=== PATIENT | male | born 1930 | race Native Hawaiian/Other Pacific Islander ===

== ENCOUNTER 2016-12-04 20:31 | Inpatient (IN) | payer OTHER ==
[~2016-12-04] VITALS: Ht 190.5 cm; Wt 78.2 kg
--- NOTE | ~2016-12-04 | HC ---
[facility] [place] [address] CONSULTATION Name: JOANNA THAPA Room #: 215-P ADM IN M.R.#: [id number] Admission: 12/04/16 Attend Phys: Alexus Ramos MD Discharge: Date of : 30 Report #: [id number] THIS REPORT FOR: //name// CC: Alexus Ramos MD HISTORY OF PRESENT ILLNESS: This is an 86-year-old gentleman who generally seeks cardiovascular management at [facility] with Dr. Bill Reina. He has had recent difficult course with frequent urinary tract infections requiring hospitalization and most recently a group home facility placement. According to the on the day of admission, there was reported change in mentation, questionable right-sided facial droop and what was felt to be of slowed mentation and was transferred to our facility for rule out cerebrovascular accident. We are asked to see him in cardiovascular consultation secondary to an elevated troponin; however, negative for myocardial infarction. REVIEW OF SYSTEMS: The patient is unable to provide full 12-point review of systems. The does essentially answer for him. There have been no recent reports of chest pain, palpitations or syncopal events. He is chronically anticoagulated and there has not been any reported evidence of GI bleeding. Otherwise, unable to obtain a full 12-point review of systems due to the patient's mentation. PAST MEDICAL HISTORY: As obtained through chart review as well as discussion with the patient and the nurse, permanent atrial fibrillation, sick sinus syndrome with recent single chamber Medtronic permanent pacemaker placed approximately 10 weeks ago, Parkinson's disease, diabetes mellitus, chronic anemia, osteoarthritis, hypertension, prostate enlargement, frequent urinary tract infection. SOCIAL HISTORY: He is , had been residing at home. There is no alcohol or tobacco use. FAMILY HISTORY: Negative for premature coronary artery disease. Essentially noncontributory for this hospitalization. HOME MEDICATIONS: As listed on his admission records eye drops as directed, Sinemet as directed, chlorthalidone daily, Aricept daily, lisinopril 10 mg daily, metformin 500 mg twice daily, Flomax 0.4 mg daily, Mevacor daily, Lopressor 50 mg twice daily, Amaryl 2 mg daily, Proscar daily, Coumadin as directed, Lasix 40 mg daily, potassium 10 mEq daily. ALLERGIES: No known drug allergies. PHYSICAL EXAMINATION: GENERAL: Alert, appropriate, however, did not verbalize with me today. [address] [address] CONSULTATION Name: JOANNA THAPA Room #: 215-P [facility] IN M.R.#: [id number] Admission: 12/04/16 Attend Phys: Alexus Ramos MD Discharge: Date of : 30 Report #: [id number] SKIN: [place], warm, dry. NECK: Without jugular venous distention. LUNGS: Sounds are clear, without rhonchi or wheeze. CARDIAC: Irregularly regular rhythm. Short systolic murmur. ABDOMEN: Soft, nontender. Bowel sounds are active. EXTREMITIES: Warm. VITAL SIGNS: He is saturating 99% on 2 liters nasal cannula. He is afebrile. He has permanent atrial fibrillation with ventricular paced rhythm on the monitor. Hemodynamically stable with blood pressures 130s to 150s, diastolics in the 60s to 70s. He weighs 172 pounds. DIAGNOSTIC DATA: Carotid Doppler has been obtained, which was negative for significant plaquing. Echocardiogram shows an ejection fraction of 50% range. Moderate right ventricular enlargement, moderate mitral regurgitation and moderate pulmonary hypertension with PA pressures in the 40s. Head CT, which was negative for acute process. An MRI is currently pending. Neurology evaluation has been completed. IMPRESSION: 1. Neurological changes. 2. Parkinson's disease. 3. Permanent atrial fibrillation. 4. Sick sinus syndrome, permanent pacemaker in place. 5. Thrombocytopenia. 6. Diabetes. 7. Dementia. RECOMMENDATIONS AND PLAN: We will discontinue any further troponin readings. These have been elevated without evidence of myocardial ischemia nor significant elevations. Cardiovascular status appears stable at this time. This was discussed with the today. We will continue to monitor him on the telemetry floor and further recommendations plan to be forthcoming. LABORATORY DATA: Sodium 139, potassium 3.9, BUN 49, creatinine 1.8. Troponins 0.06, 0.09 and 0.11 sequentially which are negative for myocardial infarction. INR was therapeutic at 2.4. Hemoglobin 12.0, white count 4.0, platelets low at 90. Thank you for allowing us to participate in the care of this pleasant gentleman. By: [id number] Tereza Somers, ADIS, CIAIO LUMITE INJECTOR /nt
--- NOTE | ~2016-12-04 | EKG ---
[address] [address] ELECTROCARDIOGRAM REPORT Name: JOANNA THAPA Room #: 215-P ADM IN M.R.#: [id number] Admission: 12/04/16 Attend Phys: Alexus Ramos MD Discharge: Date of : 30 Report #: [id number] THIS REPORT FOR: //name// [facility] ED Test Date: 2016-12-04 Test Time: 20:54:05 Pat Name: JOANNA THAPA Department: Room: [facility] Gender: M Adolescent Counselor: MZOOK : 1930 Requested By: Antonio Dorantes Order Number: [id number] MD: Coleman Hale Measurements Intervals [place] Rate: 63 P: 0 OR: 140 QRS: -78 QRSD: 166 T: 95 QT: 483 QTc: 495 Interpretive Statements Ventricular-paced rhythm No further analysis attempted due to paced rhythm No previous ECG available for comparison Electronically Signed On 12-06-2016 9:50:39 CDT by Coleman Hale [email or web address] <ELECTRONICALLY SIGNED> By: Coleman Hale MD 12/06/16 0950 53 53 Coleman Hale MD /BOY
--- NOTE | ~2016-12-04 | H ---
[facility] [place] [address] HISTORY AND PHYSICAL Name: JOANNA THAPA Room #: 215-P ADM IN M.R.#: [id number] Admission: 12/04/16 Attend Phys: Alexus Ramos MD Discharge: Date of : 30 Report #: [id number] THIS REPORT FOR: //name// CC: Alexus Ramos DATE OF SERVICE: 12/05/2016 HISTORY OF PRESENT ILLNESS: The patient is an 86-year-old male who was brought to the emergency room because of drooping on his left face and some weakness in his face and on his arm. The patient is a very poor historian and he was not cooperative with his exam. The patient was admitted to the hospital for the diagnosis of a possible new stroke or TIA. The patient slept the night in the hospital with waxing and waning of his symptoms, but we were not sure if the change in his neurological exam is in part because of actual neurological deficit or because of non-coordination or cooperation. PAST MEDICAL HISTORY: Significant for Parkinson's disease with difficulty walking; generalized muscle weakness; dysphagia, oropharyngeal phase; mild cognitive impairment; lymphedema of the lower extremities; benign prostatic hypertrophy; type 2 diabetes mellitus; chronic atrial fibrillation and dementia. The patient had a history of bradycardia, status post pacemaker placement; anemia; acute kidney injury; glaucoma; previous history of liver disease; osteoarthritis; history of falling; urinary tract infection and hypertension. MEDICATIONS: The patient's medications include Cosopt eye drops, Alphagan eyedrops, DuoNeb nebulizer treatment, Xalatan eye drops, Sinemet 25/250 one tablet 3 times a day, chlorthalidone 25 mg to take half a tablet by mouth daily, Aricept 5 mg daily, lisinopril 10 mg daily, metformin 500 mg one time daily, tamsulosin 0.4 mg to give 2 tablets by mouth daily, lovastatin 40 mg daily, metoprolol 50 mg daily, Amaryl 20 mg daily, Glucerna supplement, Proscar 5 mg daily, polyethylene glycol 17 grams daily, Coumadin 3 mg daily, Lasix 20 mg daily, potassium chloride 10 mEq daily and escitalopram 20 mg daily. ALLERGIES: No known drug allergies. SOCIAL HISTORY: The patient was living independently until he came to the [facility] facility recently. No recent history of smoking, alcohol use or drug use. FAMILY HISTORY: Noncontributory. REVIEW OF SYSTEMS: Unobtainable. PHYSICAL EXAMINATION: VITAL SIGNS: The patient's temperature on arrival to the hospital was 97.7, pulse 81, respiration 18 and blood pressure 147/75. [address] [address] HISTORY AND PHYSICAL Name: JOANNA THAPA Room #: 215-P [facility] IN M.R.#: [id number] Admission: 12/04/16 Attend Phys: Alexus Ramos MD Discharge: Date of : 30 Report #: [id number] HEAD AND NECK EXAMINATION: Unremarkable. Neck was supple. LUNGS: Clear to auscultation, with good air entry bilaterally. CARDIAC: S1, S2, without any murmur or gallop. ABDOMEN: Benign. Bowel sounds were positive. EXTREMITIES: Without any edema. NEUROLOGIC: The patient is not cooperative by any means to do any neurological exam. LABORATORY DATA: A 12-lead EKG showed ventricular paced rhythm. No further analysis was attempted. CT of the head showed no acute intracranial abnormalities. Chemistry showed sodium 135, potassium 4.2, chloride 96, bicarbonate 24, BUN 44, creatinine 1.5 and glucose was 348. Repeated blood tests showed a BUN of 51, creatinine of 1.9 and glucose of 366. The patient's INR was 2.4. The patient's CBC showed a white count of 3.6, hemoglobin 12, hematocrit 35, platelet count 90,000 and neutrophils are 62%. The patient's carotid Doppler ultrasound was negative. Repeated blood workup from today showed white count of 4, hemoglobin 12, hematocrit 35 and platelet count 90,000 and the patient's BUN was 14, creatinine 1.8 and glucose of 108. ASSESSMENT AND PLAN: 1. Possible transient ischemic attack versus a stroke. 2. Altered mental status. 3. Parkinson's disease. 4. Diabetes mellitus. 5. Hypertension. The patient was admitted to the hospital with the above-mentioned diagnoses. The patient will have echocardiogram done to rule out the possibility of thrombotic event. I will have urinalysis checked on the patient. The patient is already on therapeutic dose of Coumadin. I will continue his current medications. The patient is in acute kidney failure. I will go ahead and continue with the IV hydration. The patient will be evaluated by neurology. We will have physical therapy and occupational therapy to work with the patient. By: 0720 1026 Alexus Ramos MD /nt
--- NOTE | ~2016-12-04 | 2DMMODE ---
[facility] [place] [employer] [place] [address] 2 D/M-MODE ECHOCARDIOGRAM Name: JOANNA THAPA Room #: 215-P ADM IN M.R.#: [id number] Admission: 12/04/16 Attend Phys: Alexus Ramos MD Discharge: Date of : 30 Date of Service: 12/05/16 1051 Report #: [id number] THIS REPORT FOR: //name// APPROVED REPORT Study performed: 12/05/2016 08:48:57 EXAM: Comprehensive 2D, Doppler, and color-flow Echocardiogram Patient Location: Bedside Room #: 215 Blood Pressure: 137/77 mmHg HR: 60 bpm Rhythm: Pacemaker Other Information Study Quality: Good/Low parasternal window Indications CVA/TIA Hx: Pacemaker, chronic Afib, DM Echo Enhancing Agent Indication: Rule out Shunt Agent/Amount Used: Agitated Saline cc 2D Dimensions RVDd: 47.16 mm LVEF(%): 50.97 (>50%) IVSd: 11.80 (7-11mm) LVOT Diam: 22.53 (18-24mm) LVDd: 50.26 mm PWd: 9.82 (7-11mm) LVDs: 37.14 (25-40mm) Aortic Root: 37.02 mm Maloney's LVEF: 50.97 % Volumes Left Atrial Volume (Systole) Single Plane 4CH: 101.87 mL Single Plane 2CH: 109.85 mL LA ESV Index: 57.00 mL/m2 Aortic Valve AoV Peak Charles.: 2.05 m/s AO Peak Gr.: 16.74 mmHg LVOT Max P.31 mmHg [facility] [address] [place] [address] 2 D/M-MODE ECHOCARDIOGRAM Name: JOANNA THAPA Room #: 215-P [facility] IN ..#: [id number] Admission: 12/04/16 Attend Phys: Alexus Ramos MD Discharge: Date of : 30 Date of Service: 12/05/16 1051 Report #: [id number] AO Mean Gr.: 9.02 mmHg AO V2 Mean: 1.43 m/s LVOT Max V: 0.91 m/s AO V2 VTI: 45.67 cm ROSA Vmax: 1.77 cm2 Mitral Valve MV Decel. Time: 151.50 ms MV E Max Charles.: 0.89 m/s IVRT: 87.66 ms Pulmonary Valve PV Peak Charles.: 0.85 m/s PV Peak Gr.: 2.86 mmHg Tricuspid Valve TR Peak Charles.: 3.18 m/s TR Peak Gr.: 40.38 mmHg Left Ventricle The left ventricle is normal size. Mild basal septal hypertrophy is present. Left ventricular systolic function is low normal. LVEF is 50%. This study is not technically sufficient to allow evaluation of the LV diastolic function due to paced rhythm. Right Ventricle Right ventricle is dilated. The right ventricular systolic function is low normal. Pacemaker lead is present in the right ventricle. Atria Left atrium is severely dilated. Injection of bubbles documented no interatrial shunt. Right atrium is severely dilated. Aortic Valve Aortic valve is moderately thickened and calcified. Mild aortic regurgitation. Mild aortic stenosis. ROSA by continuity equation is 1.8cm2. Mitral Valve Mitral valve leaflets are thickened and calcified. Mild mitral annular calcification. Moderate mitral regurgitation. No evidence of mitral valve stenosis. Tricuspid Valve The tricuspid valve leaflets are mildly thickened. There is mild to moderate tricuspid regurgitation. There is moderate pulmonary hypertension with an estimated PAP of 40mmHg plus the right atrial pressure. [facility] [address] [place] [address] 2 D/M-MODE ECHOCARDIOGRAM Name: JOANNA THAPA Room #: 215-P [facility] IN ..#: [id number] Admission: 12/04/16 Attend Phys: Alexus Ramos MD Discharge: Date of : 30 Date of Service: 12/05/16 1051 Report #: [id number] Pulmonic Valve Pulmonic valve is not well visualized. Mild pulmonic regurgitation. Great Vessels The aortic root is normal in size. Ascending aorta is not well visualized. IVC is not well visualized. Pericardium There is no pericardial effusion. <Conclusion> The left ventricle is normal size. Mild basal septal hypertrophy is present. LVEF is 50%. Right ventricle is dilated. The right ventricular systolic function is low normal. Pacemaker lead is present in the right ventricle. Left atrium is severely dilated. Right atrium is severely dilated. Aortic valve is moderately thickened and calcified. Mild aortic regurgitation. Mild aortic stenosis. ROSA by continuity equation is 1.8cm2. Mitral valve leaflets are thickened and calcified. Mild mitral annular calcification. Moderate mitral regurgitation. No evidence of mitral valve stenosis. The tricuspid valve leaflets are mildly thickened. There is mild to moderate tricuspid regurgitation. There is moderate pulmonary hypertension with an estimated PAP of 40mmHg plus the right atrial pressure. Mild pulmonic regurgitation. There is no pericardial effusion. <ELECTRONICALLY SIGNED> By: Ralph Ruelas MD 12/05/16 1051 105 105 Ralph Ruelas MD /INF
--- NOTE | ~2016-12-04 | HC ---
[place] [address] CONSULTATION Name: JOANNA THAPA Room #: 215-P ADM IN M.R.#: [id number] Admission: 12/04/16 Attend Phys: Alexus Ramos MD Discharge: Date of : 30 Report #: [id number] THIS REPORT FOR: //name// CC: Alexsu Ramos HISTORY OF PRESENT ILLNESS: The patient is an 86-year-old male who unfortunately at this time is asleep in bed and cannot provide any history. I did speak with the night nurse who states that the patient was able to speak to her and carry on a conversation, although he did seem to have some difficulty with his memory. However, now he is asleep and does not want to be disturbed. The patient is a resident at [facility]. He has 2 physicians who are friends and apparently, they noticed a left-sided facial droop and slurred speech. Typically, the patient speaks quite clearly. The patient was also leaning heavily to his right. At the same time, the patient's blood sugar was 396. He was given normal saline. The patient also has a history of chronic atrial fibrillation and is on warfarin for this. When he came to the Emergency Room, the patient had a CT scan of the head, no acute stroke was seen, but because he was on warfarin with an INR of 2.4, he could not be given TPA and was admitted for further evaluation. Unfortunately, this morning, the patient is quite tired and cannot provide any information at all. PAST MEDICAL HISTORY: Atrial fibrillation, hyperlipidemia, Parkinson's disease, depression, diabetes, hypertension. PAST SURGICAL HISTORY: Unknown. MEDICATIONS: Zestril 10 mg daily, warfarin 3 mg daily, glimepiride 2 mg at breakfast, Flomax 0.4 mg b.i.d., Colace 100 mg b.i.d., citalopram 20 mg daily, carbidopa/levodopa 25/250 one tablet t.i.d., atorvastatin 40 mg at bedtime. ALLERGIES: None. VITAL SIGNS: Temperature is 36.7, pulse rate 60, respiratory rate 18, blood pressure 137/77, bedside pulse oximetry 90% via 2 liters nasal cannula. LABORATORY WORK: White blood cell count 4, hemoglobin 12, hematocrit 35.1, MCV 38.2, platelet count 90. Coagulation: INR 2.4. Chemistry: Sodium 139, potassium 3.9, chloride 102, carbon dioxide 31, BUN 49, creatinine 1.9, GFR 36, glucose 108. On admission, the patient's blood sugar was 366, calcium 9. IMAGING STUDIES: CT scan of the head demonstrates no acute intracranial abnormality, chronic intracranial findings including advanced volume loss and ventricular prominence and microvascular disease are noted. Carotid Doppler study is unremarkable. NEUROLOGIC: The patient is asleep and cannot follow any commands. It was very difficult to see any facial asymmetry. The [place] [address] CONSULTATION Name: JOANNA THAPA Room #: 215-P [facility] IN M.R.#: [id number] Admission: 12/04/16 Attend Phys: Alexus Ramos MD Discharge: Date of : 30 Report #: [id number] and curled up in bed asleep. He appears to move all 4 extremities equally. I did not notice any significant increase in tone. No tremor was present. Plantar responses were flexor bilaterally. Dysmetria could not be tested. Gait could not be tested. IMPRESSION: I could not see any significant focal findings on examination, but an adequate neurological examination was not done. At this point, an MRI head will be ordered once the patient is more awake. He will be reevaluated. In the meantime, the nurse tells me that he has not yet voided and she plans on doing a bladder scan and may do a urinalysis and if a significant amount of urine is still in the bladder, may put in a Ponce catheter. Given the elevated blood sugar, the patient also needs better blood sugar control. I thank you for your kind referral of the patient. We will continue to follow him with you. <ELECTRONICALLY SIGNED> By: Maria Isabel De Jesus DO 12/06/16 [id number] Maria Isabel De Jesus DO /nt
[2016-12-04 21:03] LABS: ABSOLUTE NEUTROPHILS 2.2 thou/uL (1.4-8.2); BASOPHILS 0.5 % (0.0-2.0); EOSINOPHILS 0.5 % (0.0-3.0); HEMATOCRIT 35.1 % (42.0-52.0); MCH 33.7 pg (26.0-34.0); MCHC 34.2 g/dL (28.0-37.0); MCV 98.3 fL (80.0-100.0); MONOCYTES 6.8 % (1.0-8.0); POLYS 62.2 % (36.0-66.0); RBC 3.57 mil/uL (4.50-6.00); RDW 15.9 % (10.5-14.5); WBC 3.6 thou/uL (4.0-11.0)
[2016-12-04 21:06] LABS: POC CA IONIZED 4.5 mg/dL (4.5-5.3); POC CREATININE 1.5 mg/dL (0.6-1.3); POC HEMOGLOBIN 12.2 g/dL (14.0-18.0); POC POTASSIUM 4.2 mmol/L (3.5-5.1)
[2016-12-04 21:08] LABS: MANUAL DIFF NO
[2016-12-04 21:17] LABS: CALCIUM 9.3 mg/dL (8.5-10.1); CREATININE 1.9 mg/dL (0.7-1.3); POTASSIUM 4.3 mmol/L (3.5-5.1)
[2016-12-04 21:21] LABS: APTT 27.3 Seconds (24.5-32.8); INR 2.4
[2016-12-04 21:22] LABS: TROPONIN-I 0.06 ng/mL (<0.04-0.07)
[2016-12-04 21:35] LABS: PLATELET COUNT 90 thou/uL (150-400)
[2016-12-04 22:31] VITALS: BP 155/71
[2016-12-04 23:02] VITALS: BP 147/75
[2016-12-05 03:07] LABS: HEMATOCRIT 35.1 % (42.0-52.0); MCH 33.5 pg (26.0-34.0); MCHC 34.1 g/dL (28.0-37.0); MCV 98.2 fL (80.0-100.0); RBC 3.58 mil/uL (4.50-6.00); RDW 16.1 % (10.5-14.5)
[2016-12-05 03:23] LABS: CALCIUM 9.4 mg/dL (8.5-10.1); CREATININE 1.8 mg/dL (0.7-1.3); POTASSIUM 3.9 mmol/L (3.5-5.1); TROPONIN-I 0.09 ng/mL (<0.04-0.07)
[2016-12-05 03:46] VITALS: BP 137/77
[2016-12-05] MEDS ORDERED: COSOPT EYE DROPS5 ML OP (07:35)
[2016-12-05] MEDS ORDERED: BRIMONIDINE TAR1 BO1 OP (07:36)
[2016-12-05] MEDS ORDERED: DUONEB 2.5-0.5 M3 ML INH (07:37)
[2016-12-05] MEDS ORDERED: XALATAN2.5 ML OPHTHALMIC (07:38)
[2016-12-05] MEDS ORDERED: CHLORTHALIDONE25 MG PO (07:39)
[2016-12-05] MEDS ORDERED: SINEMET 25-2501 EAC1 PO (07:39)
[2016-12-05] MEDS ORDERED: LISINOPRIL10 MG PO (07:40)
[2016-12-05] MEDS ORDERED: ARICEPT 5 MG TAB5 MG PO (07:40)
[2016-12-05] MEDS ORDERED: FLOMAX0.4 MG PO (07:41)
[2016-12-05] MEDS ORDERED: METFORMIN HCL500 MG PO (07:41)
[2016-12-05] MEDS ORDERED: LOPRESSOR50 PO (07:42)
[2016-12-05] MEDS ORDERED: LOVASTATIN 20 M20 MG PO (07:42)
[2016-12-05] MEDS ORDERED: GLUCERNA237 M1 PO (07:43)
[2016-12-05] MEDS ORDERED: AMARYL2 M1 PO (07:43)
[2016-12-05] MEDS ORDERED: MIRALAX17 GM PO (07:44)
[2016-12-05] MEDS ORDERED: FINASTERIDE5 MG PO (07:44)
[2016-12-05] MEDS ORDERED: COUMADIN 3 MG TA3 M1 PO (07:45)
[2016-12-05] MEDS ORDERED: LASIX 20 MG TAB20 MG PO (07:45)
[2016-12-05] MEDS ORDERED: KLOR-CON 1010 MEQ PO (07:46)
[2016-12-05] MEDS ORDERED: LEXAPRO 10 MG T10 M2 PO (07:48)
[2016-12-05 08:25] VITALS: BP 111/49; BP 130/66
[2016-12-05 10:08] LABS: URINE BILIRUBIN NEGATIVE (Negative); URINE BLOOD TRACE (Negative); URINE COLOR YELLOW; URINE GLUCOSE-RANDOM* NEGATIVE (Negative); URINE KETONES NEGATIVE (Negative); URINE LEUKOCYTES-REFLEX 3+ (Negative); URINE PROTEIN (DIPSTICK) TRACE (Negative)
[2016-12-05 10:21] LABS: HYALINE CASTS 0-3 Few /LPF (None Seen); SQUAMOUS 0-3 Few /LPF (0-3)
[2016-12-05 10:22] LABS: CRYSTALS None Seen /LPF (None Seen); URINE RBC 0-2 Rare /HPF (0-2); URINE WBC-REFLEX >25 Many /HPF (0-5); YEAST-REFLEX Present (None Seen)
[2016-12-05 10:23] LABS: WBC CLUMPS Packed (None Seen)
[2016-12-05 11:20] VITALS: BP 156/76
[2016-12-05 16:30] VITALS: BP 151/69
[2016-12-05 19:40] VITALS: BP 146/77
[2016-12-06 03:02] VITALS: BP 145/68
[2016-12-06 03:08] LABS: ABSOLUTE NEUTROPHILS 1.7 thou/uL (1.4-8.2); BASOPHILS 0.3 % (0.0-2.0); EOSINOPHILS 1.2 % (0.0-3.0); HEMATOCRIT 35.3 % (42.0-52.0); HEMOGLOBIN 12.1 gm/dL (14.0-18.0); LYMPHOCYTES 34.8 % (24.0-44.0); MCH 33.8 pg (26.0-34.0); MCHC 34.2 g/dL (28.0-37.0); MCV 98.8 fL (80.0-100.0); MONOCYTES 7.5 % (1.0-8.0); PLATELET COUNT 76 thou/uL (150-400); POLYS 56.2 % (36.0-66.0); RBC 3.57 mil/uL (4.50-6.00); RDW 16.2 % (10.5-14.5)
[2016-12-06 03:13] LABS: MANUAL DIFF NO
[2016-12-06 03:30] LABS: CALCIUM 8.8 mg/dL (8.5-10.1); CREATININE 1.4 mg/dL (0.7-1.3)
[2016-12-06 07:45] VITALS: BP 143/70
[2016-12-06 08:58] LABS: INR 2.3; PROTIME 24.1 Seconds (9.3-11.4)
[2016-12-06 16:06] VITALS: BP 152/79
[2016-12-06 19:43] VITALS: BP 150/70
[2016-12-07 03:23] LABS: HEMATOCRIT 32.3 % (42.0-52.0); MCH 33.5 pg (26.0-34.0); MCHC 34.2 g/dL (28.0-37.0); MCV 97.9 fL (80.0-100.0); RBC 3.29 mil/uL (4.50-6.00); RDW 15.7 % (10.5-14.5); WBC 2.7 thou/uL (4.0-11.0)
[2016-12-07 03:47] LABS: CALCIUM 8.4 mg/dL (8.5-10.1); CREATININE 1.2 mg/dL (0.7-1.3); POTASSIUM 3.4 mmol/L (3.5-5.1)
[2016-12-07 03:55] LABS: INR 2.6; PROTIME 26.7 Seconds (9.3-11.4)
[2016-12-07 04:22] LABS: FOLIC ACID 16.8 ng/mL (8.6-58.9); TSH 1.299 uIU/mL (0.358-3.740)
[2016-12-07 04:38] VITALS: BP 126/59
[2016-12-07 07:15] VITALS: BP 113/41; BP 116/41
[2016-12-07 12:05] VITALS: BP 106/54
== END 2016-12-07 16:04 | DRG 69 ==
LOC: ER 20:31 → EROBS 22:04 → 2N 22:04
PROVIDERS: Internal Medicine; Nurse Practitioner Adult Health; Nurse Practitioner Gerontology; Physician Assistant
DX: G45.9 Transient cerebral ischemic attack, unspecified (principal); N17.9 Acute kidney failure, unspecified; N39.0 Urinary tract infection, site not specified; G20 Parkinson's disease; E11.65 Type 2 diabetes mellitus with hyperglycemia; E78.5 Hyperlipidemia, unspecified; F32.9 Major depressive disorder, single episode, unspecified; I49.5 Sick sinus syndrome; N40.0 Benign prostatic hyperplasia without lower urinary tract symptoms; M19.90 Unspecified osteoarthritis, unspecified site; I48.2 Chronic atrial fibrillation; F02.80 Dementia in other diseases classified elsewhere, unspecified severity, without behavioral disturbance, psychotic disturbance, mood disturbance, and anxiety; D69.6 Thrombocytopenia, unspecified; H40.9 Unspecified glaucoma; R13.10 Dysphagia, unspecified; I11.9 Hypertensive heart disease without heart failure; R47.81 Slurred speech; Z95.0 Presence of cardiac pacemaker
CPT/HCPCS: 10081